=== PATIENT | male | born 1975 | race African-American/Black ===

== ENCOUNTER 2024-10-31 13:26 | Emergency (ER) | payer BC ==
[~2024-10-31] VITALS: Ht 177.8 cm; Wt 97.5 kg
[2024-10-31 13:30] VITALS: TEMP 97.6
[2024-10-31 14:30] LABS: BASOPHILS # (AUTO) 0.1 (0.0-0.1); BASOPHILS % 0.9 % (0.0-1.0); EOSINOPHILS # (AUTO) 0.1 (0.0-0.4); EOSINOPHILS % 1.5 % (0.0-6.0); HEMATOCRIT 45.5 % (38.2-49.6); HEMOGLOBIN 15.2 g/dL (14.0-18.0); LYMPHOCYTES # (AUTO) 1.5 (1.0-3.2); LYMPHOCYTES % 28.3 % (18.0-39.1); MEAN CORPUSCULAR HEMOGLOBIN 27.8 pg (28-32); MEAN CORPUSCULAR HGB CONC 33.4 g/dL (31-35); MEAN CORPUSCULAR VOLUME 83.3 fL (81-99); MONOCYTES # (AUTO) 0.4 (0.2-0.8); MONOCYTES % 7.1 % (4.4-11.3); NEUTROPHILS # (AUTO) 3.3 (2.1-6.9); PLATELET COUNT 275 x10e3/uL (140-360); RED BLOOD COUNT 5.46 x10e6/uL (4.3-5.7); RED CELL DISTRIBUTION WIDTH 12.8 % (11.7-14.4); WHITE BLOOD COUNT 5.34 x10e3/uL (4.8-10.8)
[2024-10-31 14:45] LABS: INR 0.97; PROTHROMBIN TIME 13.5 seconds (11.9-14.5)
[2024-10-31 14:46] LABS: PARTIAL THROMBOPLASTIN TIME 28.1 seconds (23.8-35.5)
[2024-10-31 14:47] LABS: CLARITY,URINE CLEAR (CLEAR); COLOR,URINE YELLOW (YELLOW); GLUCOSE, URINE NEGATIVE (NEGATIVE); KETONES,URINE NEGATIVE (NEGATIVE); LEUKOCYTE ESTERASE ,URINE NEGATIVE (NEGATIVE); NITRITE,URINE NEGATIVE (NEGATIVE); PH,URINE 7 (5 - 7); PROTEIN,URINE DIPSTICK 2+ (NEGATIVE)
[2024-10-31 14:48] LABS: BACTERIA,URINE FEW /HPF; BILIRUBIN,URINE NEGATIVE (NEGATIVE); EPITHELIAL CELLS,URINE FEW /LPF; URINE UROBILINOGEN 0.2 mg/dL (0.2 - 1); WBC,URINE (MAN) 0-5 /HPF (0-5)
[2024-10-31 14:53] LABS: ALANINE AMINOTRANSFERASE 15 IU/L (0-55); ALBUMIN 4.2 g/dL (3.5-5.0); ALKALINE PHOSPHATASE 56 IU/L (40-150); ANION GAP 14.3 mmol/L (8-16); BILIRUBIN,TOTAL 0.8 mg/dL (0.2-1.2); BLOOD UREA NITROGEN 16 mg/dL (7-26); BUN/CREATININE RATIO 13 (6-25); CALCIUM 9.9 mg/dL (8.4-10.2); CARBON DIOXIDE 26 mmol/L (22-29); CHLORIDE 101 mmol/L (98-107); CREATINE KINASE 127 IU/L (30-200); CREATININE, SERUM 1.24 mg/dL (0.72-1.25); EST GLOMERULAR FILTRATION RATE 72 ML/MIN (>=60); GLUCOSE 107 mg/dL (74-118); MAGNESIUM 2.1 MG/DL (1.3-2.1); POTASSIUM 4.3 mmol/L (3.5-5.1); SODIUM 137 mmol/L (136-145); TOTAL PROTEIN 8.3 g/dL (6.5-8.1)
[2024-10-31] MEDS: SODIUM CHLORIDE 0.9% 1000ML 1,000 ML IV STA (14:57)
[2024-10-31] MEDS: LABETALOL HCL 5 MG/ML 20ML VIAL IV STA ×2 (15:01→16:58)
[2024-10-31 15:03] LABS: TROPONIN I < 0.001 ng/mL (0-0.300)
[2024-10-31] MEDS: ENALAPRILAT IV INJ 1.25 MG/ML VIAL IV STA (15:48)
[2024-10-31] MEDS: LOSARTAN POTASSIUM 25 MG TAB PO ONE (16:15)
[2024-10-31 16:58] VITALS: BP 183/116; PULSE 97
[2024-10-31 17:29] VITALS: PULSE 95; RESP 17; O2SAT 97
[2024-10-31] MEDS ORDERED: OLMESARTAN-HCT1 EAC1 PO (17:39)
== END 2024-10-31 17:54 | disposition home or self-care (01) ==
LOC: ER 13:59
DX: I10 Essential (primary) hypertension (principal); E11.9 Type 2 diabetes mellitus without complications; F32.A Depression, unspecified
CPT/HCPCS: 36415; 70450; 71045; 80053; 81001; 82550; 83735; 83880; 84484; 85025; 85610; 85730; 93005; 99283; J3490; J7030

== ENCOUNTER 2025-04-26 11:29 | Emergency (ER) | payer BC ==
[~2025-04-26] VITALS: Ht 177.8 cm; Wt 97.5 kg
[~2025-04-26 11:29] MED LIST: OLMESARTAN-HCT1 EAC1 PO
[2025-04-26] MEDS: HYDRALAZINE HCL 20 MG/ML VIAL IV STA (13:33)
[2025-04-26] MEDS: CLONIDINE HCL 0.1 MG TAB PO ONE ×2 (13:39→15:00)
[2025-04-26 13:54] LABS: BASOPHILS % 1.0 % (0.0-1.0); EOSINOPHILS % 3.5 % (0.0-6.0); LYMPHOCYTES % 29.8 % (18.0-39.1); MONOCYTES % 8.2 % (4.4-11.3); NEUTROPHILS % 57.3 % (38.7-80.0); RED CELL DISTRIBUTION WIDTH 13.0 % (11.7-14.4)
[2025-04-26 14:20] LABS: INR 0.95
[2025-04-26 14:48] LABS: EST GLOMERULAR FILTRATION RATE 78.0 ML/MIN (>=60)
[2025-04-26] MEDS: ACETAMINOPHEN 325 MG TAB PO ONE (15:01)
[2025-04-26 15:51] VITALS: BP 184/114
[2025-04-26] MEDS: ENALAPRILAT IV INJ 1.25 MG/ML VIAL IV STA (15:51)
[2025-04-26 16:57] VITALS: PULSE 93; RESP 16; TEMP 98.6; O2SAT 98
== END 2025-04-26 16:59 | disposition home or self-care (01) ==
LOC: ER 12:56
DX: I10 Essential (primary) hypertension (principal); Z91.148 Patient's other noncompliance with medication regimen for other reason; E11.65 Type 2 diabetes mellitus with hyperglycemia; F32.A Depression, unspecified
CPT/HCPCS: 36415; 70450; 71045; 80053; 82550; 83735; 83880; 84484; 85025; 85610; 85730; 93005; 99284; J0360